=== PATIENT | female | born 1955 | race Caucasian/White ===

== ENCOUNTER → 2017-01-29 | Outpatient (CLI) | payer OTHER | LOC: FIMAGING 07:28 | PROVIDERS: ATTEND Physician Assistant | DX: R93.2 Abnormal findings on diagnostic imaging of liver and biliary tract (principal); R10.11 Right upper quadrant pain ==

== ENCOUNTER → 2017-05-29 | Outpatient (CLI) | payer OTHER | LOC: CIMAGING 08:03 | PROVIDERS: ATTEND Physician Assistant | DX: R19.00 Intra-abdominal and pelvic swelling, mass and lump, unspecified site (principal) | CPT/HCPCS: 76705-PO ==

== ENCOUNTER 2017-10-15 09:38 | Inpatient (IN) | payer OTHER ==
--- NOTE | 2017-10-15 10:08 | CPEKG ---
Heart Rate: 90 RR Interval: 667 P-R Interval: 160 QRSD Interval: 88 QT Interval: 372 QTC Interval: 455 P Blackwell: 62 QRS Blackwell: -45 T Wave Black[place]: 77 EKG Severity - ABNORMAL ECG - EKG Impression: SINUS RHYTHM EKG Impression: VENTRICULAR PREMATURE COMPLEX EKG Impression: LEFT ANTERIOR FASCICULAR BLOCK Electronically Signed By: Kwasi Mark 17-Oct-2017 05:31:44
[2017-10-15] MEDS ORDERED: fentaNYL 100 MCG/2 ML INJ IVP ONE (10:28)
[2017-10-15] MEDS ORDERED: ONDANSETRON 4 MG/2 ML VIAL IVP ONE (10:28)
[2017-10-15] MEDS ORDERED: NS 1,000 ML IV ONE (10:28)
[2017-10-15 10:34] LABS: % IMMATURE GRANULYOCYTES 0.7 % (0.0-1.1); ABSOLUTE IMMATURE GRANULOCYTES 0.06 10^3/uL (0.00-0.10); ADD DIFF? NO; ADD MORPH? NO; ADD SCAN? NO; ATYPICAL LYMPHOCYTE FLAG 0 (0-99); FRAGMENT RBC FLAG 0 (0-99); HEMATOCRIT 47.4 % (38.0-47.0); HEMOGLOBIN 17.1 g/dL (12.6-16.3); LEFT SHIFT FLG 0 (0-99); LIPEMIA HEMOLYSIS FLAG 90 (0-99); MEAN CELL HEMOGLOBIN 35.8 pg (27.9-34.1); MEAN CELL HEMOGLOBIN CONCENTR. 36.1 g/dL (32.4-36.7); MEAN CELL VOLUME 99.4 fL (81.5-99.8); MEAN PLATELET VOLUME 9.1 fL (8.7-11.7); PLATELET CLUMPS FLAG 0 (0-99); PLATELET COUNT 270 10^3/uL (150-400); RED BLOOD CELL COUNT 4.77 10^6/uL (4.18-5.33); RED CELL DISTRIBUTION WIDTH 15.8 % (11.5-15.2)
[2017-10-15 10:48] LABS: ALANINE AMINOTRANSFERASE 67 IU/L (9-52); ALKALINE PHOSPHATASE 58 IU/L (38-126); ANION GAP 12 mEq/L (8-16); ASPARTATE AMINOTRANSFERASE 49 IU/L (14-46); BILIRUBIN,TOTAL 0.8 mg/dL (0.1-1.4); BILIRUBIN-CONJUGATED 0.2 mg/dL (0.0-0.5); BILIRUBIN-UNCONJUGATED 0.6 mg/dL (0.0-1.1); CALCIUM 9.3 mg/dL (8.5-10.4); CARBON DIOXIDE 24 mEq/l (22-31); CHLORIDE 103 mEq/L (97-110); GLOMERULAR FILTRATION RATE 56; GLUCOSE 98 mg/dL (70-100); POTASSIUM 3.8 mEq/L (3.5-5.2); SODIUM 139 mEq/L (134-144); TOTAL PROTEIN 6.3 g/dL (6.3-8.2)
[2017-10-15 10:58] LABS: TROPONIN I < 0.012 ng/mL (0.000-0.034)
[2017-10-15 11:22] LABS: COLOR YELLOW; LEUKOCYTE ESTERASE,URINE NEGATIVE (NEGATIVE); NITRITE,URINE NEGATIVE (NEGATIVE)
[2017-10-15 11:27] LABS: MUCUS TRACE /lpf (NONE-1+)
--- NOTE | 2017-10-15 11:51 | EDPHY ---
HPI/HX/ROS/PE/MDM Narrative: CHIEF COMPLAINT: Nausea, vomiting. HISTORY OF PRESENT ILLNESS: This patient is a 62 year old female with history of Richie's disease, hypothyroidism, hyperparathyroidism, and diabetes insipidus arriving via EMS complaining of vomiting, diarrhea, and weakness onset yesterday evening. She has episodes of vomiting or diarrhea every 15 minutes from 9:00pm last night until about 4:30 am this morning. She was unable to take her regular medications at 6:00 this morning as usual. EMS crews administered Zofran and solumedrol during transport. The patient denies any known ill contacts but volunteers at [facility]. She endorses abdominal cramping. Currently, she is feeling better, and states the Zofran administered in transport relieved nausea quite a bit. She also complains of chest pain, which she believes may be associated with her Richie's disease, or with reflux. She has noted increased chest discomfort and fatigue with exertion lately. She discussed this with her PCP who recommended stress testing. No fever, chills, shortness of breath, palpitations, urinary complaints, headache, lightheadedness, or syncope. Also c/o knee swelling due to her gout. REVIEW OF SYSTEMS: Aside from elements discussed in the HPI, a comprehensive 10-point review of systems was reviewed and is negative. PAST MEDICAL HISTORY: 1. Diabetes insipidus 2. Richie's disease 3. Hernia repair x2 4. Gout 5. Detached retina 6. Hypothyroid 7. Hyperparathyroid SOCIAL HISTORY: Single. Lives in [place]. PCP Dr. Smith. VITAL SIGNS: Reviewed by me GENERAL: Well-developed, well-nourished, resting comfortably in no respiratory distress. HEENT: Atraumatic. Eyes: No icterus, no injection. Anisocoria secondary to retinal detachment surgery. Mouth: dry lips, mucous membranes. No erythema or lesions. Neck: supple with no adenopathy. LUNGS: Clear to auscultation bilaterally, no wheezes, rhonchi or rales. CARDIAC: Regular tachycardia, no rubs, murmurs or gallops. ABDOMEN: Soft, mild diffuse abdominal tenderness, no guarding or rebound nondistended, bowel sounds normal. BACK: No CVA tenderness. EXTREMITIES: Swelling to right knee. No trauma. No edema. Range of motion is normal throughout. NEURO: Alert and oriented, grossly nonfocal. SKIN: Warm and dry, no rash. PSYCHIATRIC: Normal mentation, no agitation. Portions of this note were transcribed by a director biomedical engineering. I personally performed a history, physical exam, medical decision making, and confirmed accuracy of information the transcribed note. ED Course: 62 y/o female with history of multiple endocrine disorders presents with 12 hour history of nausea and vomiting. 12-LEAD EKG: Please see the full report in [facility]. My interpretation: Sinus rhythm, rate 90. PVC. No acute ischemic changes. Lipase elevated 1357. AST, ALT elevated. Troponin negative. Plan to admit. Plan for cardiology consult to further evaluate the patient's chest pain and fatigue with exertion. 11:51 Consulted with hospitalist service. Dr. Rowell accepts admission. Discussed with patient. US of RUQ ordered to eval for gallstone pancreatitis. US reported by radiology as negative for gallstones. See full report. MDM: Diff dx of patients nausea and vomiting considered including but not limited to gastroenteritis, adrenal crisis, DKA, infection, drug or alcohol effect, drug or alcohol withdrawl, intraabdominal process including bowel obstruction, pancreatitis, cholecystitis. - Data Points Imaging Results: Impression: 1. Normal sonographic appearance of the gallbladder, with no cholelithiasis, cholecystitis, or bile duct dilatation. 2. There are a couple of stable subcentimeter echogenic lesions in the right hepatic lobe, likely representing benign hemangiomas, unchanged from February 2015. Findings were discussed with Lori Pandey MD at 12:19, on 10/15/2017. She indicated the patient has an elevated lipase level of 1300, consistent with pancreatitis. The sonographic appearance of the pancreas is normal, and there is no peripancreatic fluid collection. CT imaging would be a more sensitive means of evaluating the pancreatic bed. Dictated By: Angel Pearson MD Imaging: Discussed imaging studies w/ call center professional Radiologist Laboratory Results: Laboratory Results 10/16/17 04:40 10/16/17 04:40 Medications Given: Acetaminophen (Tylenol) 650 mg PO Q4HRS PRN PRN Reason: Pain, Mild/Fever, Can Take PO Stop: 04/13/18 13:47 Last Admin: 10/15/17 18:27 Dose: 650 mg Doxepin HCl (Sinequan) 10 mg PO HS [facility] Stop: 04/14/18 20:59 Last Admin: 10/16/17 22:13 Dose: 10 mg Gabapentin (Neurontin) 100 mg PO QID [facility] Stop: 04/14/18 20:59 Last Admin: 10/17/17 05:28 Dose: 100 mg Hydrocortisone (Solucortef) 25 mg IVP Q8HRS [facility] Stop: 04/13/18 13:59 Last Admin: 10/17/17 05:28 Dose: 25 mg Dextrose/Sodium Chloride (D5w 1/2 Ns) 1,000 mls @ 100 mls/hr IV CONT [facility] Stop: 04/13/18 13:59 Last Admin: 10/16/17 16:26 Dose: 1,000 mls Levofloxacin/Dextrose (Levaquin 500 Mg (Premix)) 100 mls @ 100 mls/hr IV DAILY [facility] PRN Reason: Protocol Stop: 11/14/17 13:59 Last Admin: 10/17/17 09:13 Dose: 100 mls Levothyroxine Sodium (Synthroid) 50 mcg PO DAILY06 [facility] Stop: 04/14/18 17:14 Last Admin: 10/17/17 05:28 Dose: [address] [place] Carbonate ([place] Carbonate) 150 mg PO DAILY [facility] Stop: 04/14/18 17:14 Last Admin: 10/17/17 09:13 Dose: 150 mg Miscellaneous Medication (Paricalcitol [Zemplar]) 1 mcg PO Q2D [facility] Stop: 04/14/18 17:14 Last Admin: 10/16/17 17:26 Dose: Not Given Modafinil (Provigil) 50 mg PO BID@08,12 [facility] Stop: 04/15/18 07:59 Last Admin: 10/17/17 09:18 Dose: 50 mg Ondansetron HCl (Zofran) 4 mg IVP Q4HRS PRN PRN Reason: Nausea/Vomiting, Can't Take PO Stop: 04/13/18 13:47 Last Admin: 10/15/17 18:41 Dose: 4 mg Pantoprazole Sodium (Protonix) 40 mg PO DAILY [facility] Stop: 04/15/18 08:59 Last Admin: 10/17/17 09:13 Dose: 40 mg Valacyclovir HCl (Valtrex) 1,000 mg PO DAILY [facility] Stop: 01/13/18 08:59 Last Admin: 10/17/17 09:13 Dose: 1,000 mg Discontinued Medications Fentanyl (Sublimaze) 50 mcg IVP EDNOW ONE Stop: 10/15/17 10:29 Last Admin: 10/15/17 10:49 Dose: Not Given Sodium Chloride (Ns) 1,000 mls @ 0 mls/hr IV EDNOW ONE; Wide Open PRN Reason: Protocol Stop: 10/15/17 10:29 Last Admin: 10/15/17 10:37 Dose: 1,000 mls Ondansetron HCl (Zofran) 4 mg IVP EDNOW ONE Stop: 10/15/17 10:29 Last Admin: 10/15/17 10:39 Dose: 4 mg Microbiology Results: MICROBIOLOGY 10/15/17 15:07 Stool Gastrointestinal Tract Panel (PCR) - Final Norovirus Gi/Gii General Time Seen by Provider: 10/15/17 10:13 Initial Vital Signs: Initial Vital Signs Temperature (C) 36.9 C 10/15/17 09:53 Heart Rate 92 10/15/17 09:53 Respiratory Rate 25 H 10/15/17 09:53 Blood Pressure 113/77 10/15/17 09:53 O2 Sat (%) 97 10/15/17 09:53 O2 Delivery Mode Room Air Allergies/Adverse Reactions: cephalexin monohydrate [From Keflex] Allergy (Verified 10/15/17 12:41) flush Penicillins Allergy (Verified 10/15/17 12:41) Hives Sulfa (Sulfonamide Antibiotics) Allergy (Verified 10/15/17 12:41) Hives tetracycline [Tetracycline] Allergy (Verified 10/15/17 12:41) flush Home Medications: Medication Instructions Recorded Prednisone 5 mg PO BID 07/13/11 Paricalcitol [Zemplar] 1 mcg PO Q2D 10/05/15 Atenolol [Tenormin 50 mg (*)] 50 mg PO DAILY@12 10/15/17 Carboxymethylcellulose 1% [Refresh 1 drop EACHEYE DAILY PRN 10/15/17 Celluvisc (*)] Cholecalciferol Vit D3 [Vitamin D3 1,000 units PO DAILY 10/15/17 (*)] Doxepin HCl [SINEquan 10 MG (*)] 10 mg PO HS 10/15/17 Fludrocortisone Acetate [Florinef 0.5 each PO DAILY 10/15/17 0.1 MG (RX)] Furosemide [Lasix 20 MG (*)] 20 mg PO DAILY 10/15/17 Gabapentin [Neurontin 100 MG (*)] 100 mg PO QID 10/15/17 Ibuprofen [Motrin (*)] 400 mg PO DAILY PRN 10/15/17 Lansoprazole [Prevacid] 15 mg PO DAILY 10/15/17 Levothyroxine [Synthroid 50 mcg 50 mcg PO DAILY06 10/15/17 (*)] [place] Carbonate [Pe[place] 150 mg PO DAILY 10/15/17 Carbonate Tab 300 mg (*)] Modafinil [Provigil 100 mg (*)] 50 mg PO BID@08,12 10/15/17 Rizatriptan Benzoate [Maxalt 10mg] 10 mg PO DAILY PRN 10/15/17 Vitamin B Complex [B Complex] 1 each PO DAILY 10/15/17 levOFLOXACIN [levAQUIN (*)] 500 mg PO DAILY 10/15/17 valACYclovir [Valtrex (*)] 1,000 mg PO DAILY 10/15/17 Departure - Departure Disposition: [facility] Acute Clinical Impression: Elevated lipase Nausea & vomiting Qualifiers: Vomiting type: unspecified Vomiting Intractability: non-intractable Qualified Code(s): R11.2 - Nausea with vomiting, unspecified Diarrhea Qualifiers: Diarrhea type: unspecified type Qualified Code(s): R19.7 - Diarrhea, unspecified Condition: Fair Report Scribed for: Lori Pandey Report Scribed by: Tamara Barry Date of Report: 10/15/17 Time of Report: 12:09
[2017-10-15] MEDS ORDERED: ACETAMINOPHEN 325 MG TAB PO PRN (13:48)
[2017-10-15] MEDS ORDERED: PROMETHAZINE HCL 25 MG/ML INJ IVP PRN (13:48)
[2017-10-15] MEDS ORDERED: ONDANSETRON DISINTEGRATING 4 MG TAB PO PRN (13:48)
[2017-10-15] MEDS ORDERED: CARBOXYMETHYLCELLULOSE 1% 0.4 ML DROPERETTE EACHEYE PRN (13:50)
--- NOTE | 2017-10-15 14:13 | ASMTCMCOM ---
CM Note CM Note Notes: PAtient admitted for N/V/D since yesterday and elevated lipase. Patient has been unable to take her daily medications. Patient has a history of [place]'s, hypothyroidism, hyperparathyroidism, diabetes insipidus. 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. Patient lives alone in [place] and her PCP is Dr. Smith. Exact DC needs unknown at this time. CM to follow. Date Signed: 10/15/2017 02:13 PM Electronically Signed By:Elaine Mims RN
[2017-10-15] MEDS: HYDROCORTISONE 100 MG/2 ML VIAL IVP SCH ×2 (14:30→22:15)
--- NOTE | 2017-10-15 14:31 | GHP ---
[f rep st] HISTORY AND PHYSICAL DATE OF ADMISSION: 10/15/2017 CHIEF COMPLAINT: Nausea, vomiting, diarrhea. HISTORY OF PRESENT ILLNESS: A 62-year-old female with [place] disease presents with acute onset of n ausea, vomiting, and diarrhea. This began last night. This has all been nonbloody. Was quite profu se. She had diarrhea as well as vomiting about every half an hour. She tried to take her medicines. However, those came back up as well. 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 She has been taking Levaquin for a sinus infection. She has 7 days into a 10 day course. She was feeling very weak when paramedics arrived. They gave her S barbara-Medrol in the ambulance on the way to the emergency department. She does not drink alcohol. She has had elevated lipase in the past, though she is unclear if she has actually had pancreatitis in t he past. She is feeling better after IV hydration when I am seeing her. She also complains of some burning chest pain, which has been present for some time. She feels as though she gets this when she gets fatigued, and she has associates this with her [place] disease. PAST MEDICAL/SURGICAL HISTORY: 1. [place] disease. 2. Diabetes insipidus. 3. Hypothyroid. 4. Hyperparathyroid. 5. Hernia repair. 6. Gout. 7. Detached retina. MEDICATIONS: Please see medication reconciliation. ALLERGIES: Keflex, penicillin, sulfa, tetracycline. SOCIAL HISTORY: She lives in [place]. She is not . FAMILY HISTORY: Her father had [place] disease. REVIEW OF SYSTEMS: A 10-point review of systems is conducted and is negative except per HPI. PHYSICAL EXAMINATION: VITAL SIGNS: Blood pressure 106/82, heart rate 85, respiration rate 14, satur ating 94% on room air. Temperature is 36.9. GENERAL: The patient is a pleasant female who looks so mewhat pale and listless, lying in bed. HEENT: Shows her to be normocephalic, atraumatic. CARDIOVA SCULAR: Shows regular rate and rhythm. She has a 1/6 systolic murmur. PULMONARY: Shows lungs sherice r to auscultation bilaterally. ABDOMEN: Soft, nontender, nondistended. SKIN: Shows no rash. : Shows no Pete. NEUROLOGIC: Shows her to be alert and oriented x3. She is moving all extremities. PSYCHIATRIC: Shows normal mood and affect. LABORATORY: Basic metabolic panel is normal. AST is 49, ALT 67. Troponins negative. Lipase 1357. Hemoglobin 17, platelets are normal, white count is 8. Urinalysis shows 1+ ketones. DATA: 1. I reviewed her chart. 2. I personally viewed and interpreted her EKG. This shows sinus rhythm. She has 1 PVC. She has m ild ST depression in V3, V4, and V5. 3. Abdominal ultrasound shows no cholecystitis. She has likely hemangiomas, which are unchanged fro m February of 2015, in her liver. IMPRESSION AND PLAN: A 62-year-old female with gastroenteritis. 1. Gastroenteritis: Will send gastrointestinal pathogen panel. She is at risk for norovirus given recent outbreak as well as Clostridium difficile given her antibiotic use. Will empirically place he r on contact precautions while awaiting GI pathogen panel. 2. [place] disease: Will give her intravenous steroids as she is not taking p.o. right now. 3. Dehydration: Will give her IV hydration overnight. 4. Recent sinus infection: Will change her Levaquin to IV. 5. Will give her antiemetics IV as needed. 6. Hypothyroid: Will restart her Synthroid as soon as she is taking p.o. 7. Hyperparathyroidism: Will continue her paricalcitol when she is taking p.o. 8. Chest pain, mild ST depressions: Will discuss further with her tomorrow. Initial troponin negat johnson. Will check one more troponin. 9. Mild transaminitis: Suspect that this is dehydration. Liver appears normal. No evidence for ch olecystitis on ultrasound. Will recheck tomorrow. 10. Elevated lipase: Could consider pancreatitis though seems less likely given the clinical pictur e. 11. Venous thromboembolism risk: She is moderate. Will put her on SCDs. 12. Cor status: Full. /[id number]/MODL
[2017-10-15] MEDS: D5W 1/2 NS 1,000 ML IV SCH (14:34)
[2017-10-15] MEDS: levOFLOXACIN 500 MG/DEXTROSE 100 ML IV SCH (14:51)
[2017-10-15] MEDS: ONDANSETRON 4 MG/2 ML VIAL IVP PRN (18:41)
[2017-10-16 05:15] LABS: % IMMATURE GRANULYOCYTES 1.1 % (0.0-1.1); ABSOLUTE IMMATURE GRANULOCYTES 0.06 10^3/uL (0.00-0.10); ADD DIFF? NO; ADD MORPH? NO; ADD SCAN? NO; ATYPICAL LYMPHOCYTE FLAG 0 (0-99); FRAGMENT RBC FLAG 20 (0-99); HEMATOCRIT 34.8 % (38.0-47.0); HEMOGLOBIN 12.4 g/dL (12.6-16.3); LEFT SHIFT FLG 0 (0-99); LIPEMIA HEMOLYSIS FLAG 90 (0-99); MEAN CELL HEMOGLOBIN 36.2 pg (27.9-34.1); MEAN CELL HEMOGLOBIN CONCENTR. 35.6 g/dL (32.4-36.7); MEAN CELL VOLUME 101.5 fL (81.5-99.8); PLATELET CLUMPS FLAG 0 (0-99); PLATELET COUNT 234 10^3/uL (150-400); RED BLOOD CELL COUNT 3.43 10^6/uL (4.18-5.33); RED CELL DISTRIBUTION WIDTH 15.9 % (11.5-15.2)
[2017-10-16] MEDS: HYDROCORTISONE 100 MG/2 ML VIAL IVP SCH ×3 (05:19→22:13)
[2017-10-16 05:27] LABS: ALANINE AMINOTRANSFERASE 52 IU/L (9-52); ALBUMIN 2.5 g/dL (3.5-5.0); ALKALINE PHOSPHATASE 35 IU/L (38-126); ANION GAP 6 mEq/L (8-16); ASPARTATE AMINOTRANSFERASE 33 IU/L (14-46); BILIRUBIN,TOTAL 0.6 mg/dL (0.1-1.4); CALCIUM 7.7 mg/dL (8.5-10.4); CARBON DIOXIDE 22 mEq/l (22-31); CHLORIDE 112 mEq/L (97-110); CREATININE 0.7 mg/dL (0.6-1.0); GLOMERULAR FILTRATION RATE > 60; GLUCOSE 129 mg/dL (70-100); POTASSIUM 3.6 mEq/L (3.5-5.2); SODIUM 140 mEq/L (134-144); TOTAL PROTEIN 4.5 g/dL (6.3-8.2)
--- NOTE | 2017-10-16 09:07 | CPEKG ---
Heart Rate: 67 RR Interval: 896 P-R Interval: 168 QRSD Interval: 94 QT Interval: 400 QTC Interval: 423 P [place]: 54 QRS [place]: -20 T Wave [place]: 63 EKG Severity - BORDERLINE ECG - EKG Impression: SINUS RHYTHM EKG Impression: BORDERLINE LEFT AXIS DEVIATION EKG Impression: CONSIDER ANTERIOR INFARCT Electronically Signed By: Kamila Bean 16-Oct-2017 11:11:57
[2017-10-16] MEDS: levOFLOXACIN 500 MG/DEXTROSE 100 ML IV SCH (09:30)
--- NOTE | 2017-10-16 12:47 | HOSPPROG ---
Hospitalist Progress Note Assessment/Plan: # norovirus, gastroenteritis slowly resolving, trying to eat today - cont IVF # triny's disease - cont IV steroids # CP, concerning for angina, ST depressions on ECG - treadmill ECG stress tomorrow; she would not be able to f/u with cardiology as outpatient until next year # sinus infection - levaquin, has about 2 more days # htn - hold meds # hypothyroid - synthroid Subjective: trying to eat, has not tolerated solids yet; describes pressure CP worse with exertion and better with rest, slowly worsening Objective: Vital Signs Temp Pulse Resp BP Pulse Ox 37.1 C 81 15 109/71 94 10/16/17 08:00 10/16/17 08:00 10/16/17 08:00 10/16/17 08:00 10/16/17 08:00 Microbiology 10/15/17 15:07 Gastrointestinal Tract Panel (PCR) - Final Stool Norovirus Gi/Gii Laboratory Results 10/16/17 04:40 10/16/17 04:40 10/15/17 10/16/17 10/17/17 05:59 05:59 05:59 Intake Total 2594 Balance 2594 ecg personally reviewed - Physical Exam Constitutional: no apparent distress, appears nourished Cardiovascular: regular rate and rhythym, no murmur, rub, or gallop Respiratory: no respiratory distress, no rales or rhonchi, clear to auscultation Gastrointestinal: normoactive bowel sounds, soft, non-tender abdomen, no palpable masses ICD10 Worksheet Patient Problems: Problems Problem Status Onset Nausea & vomiting Acute Diarrhea Acute Elevated lipase Acute
[2017-10-16] MEDS: D5W 1/2 NS 1,000 ML IV SCH (16:26)
--- NOTE | 2017-10-16 17:00 | PDMN ---
Medical Necessity Medical necessity: Change to IP, as of 10/16/17; per MD; los >2 mn for ongoing management/tx of Norovirus & CP, concerning for angina; admit for further management, IVF, IV steroids/abx & ECG; hx recent sinus infection, diabetes insipidus & [place] disease; per progress note & order 10/16/17
[2017-10-16] MEDS ORDERED: RIZATRIPTAN BENZOATE PO PRN (17:07)
[2017-10-16] MEDS ORDERED: IBUPROFEN 200 MG TAB PO PRN (17:07)
[2017-10-16] MEDS: LITHIUM CARBONATE 300 MG TAB PO SCH (17:25)
[2017-10-16] MEDS: PARICALCITOL 1 MCG PO SCH (17:26)
[2017-10-16] MEDS: LEVOTHYROXINE 50 MCG TAB PO SCH (17:26)
[2017-10-16] MEDS: DOXEPIN HCL 10 MG CAP PO SCH (22:13)
[2017-10-16] MEDS: GABAPENTIN 100 MG CAP PO SCH (22:13)
[2017-10-17] MEDS: LEVOTHYROXINE 50 MCG TAB PO SCH (05:28)
[2017-10-17] MEDS: HYDROCORTISONE 100 MG/2 ML VIAL IVP SCH ×3 (05:28→21:50)
[2017-10-17] MEDS: GABAPENTIN 100 MG CAP PO SCH ×4 (05:28→21:50)
[2017-10-17] MEDS: levOFLOXACIN 500 MG/DEXTROSE 100 ML IV SCH (09:13)
[2017-10-17] MEDS: PANTOPRAZOLE SODIUM 40 MG TAB PO SCH (09:13)
[2017-10-17] MEDS: LITHIUM CARBONATE 300 MG TAB PO SCH (09:13)
[2017-10-17] MEDS: valACYclovir 500 MG TAB PO SCH (09:13)
[2017-10-17] MEDS: MODAFINIL 100 MG TAB PO SCH ×2 (09:18→13:25)
--- NOTE | 2017-10-17 11:05 | HOSPPROG ---
Hospitalist Progress Note Assessment/Plan: 62 yo F w triny's here w norovairus norovirus, gastroenteritis slowly resolving, tolerating po triny's disease - cont IV steroids CP, concerning for angina, ST depressions on ECG - treadmill ECG stress tomorrow; she would not be able to f/u with cardiology as outpatient until next year sinus infection - levaquin, has about 2 more days htn - hold meds hypothyroid - synthroid dispo: home if stress OK Subjective: no further CP. tolerating po w some nausea Objective: Vital Signs Temp Pulse Resp BP Pulse Ox 36.8 C 66 14 131/66 H 95 10/17/17 08:00 10/17/17 08:00 10/17/17 08:00 10/17/17 08:00 10/17/17 08:00 10/16/17 10/17/17 10/18/17 05:59 05:59 05:59 Intake Total 1738 Balance 1738 - Physical Exam Constitutional: no apparent distress, appears nourished Eyes: PERRL, anicteric sclera Ears, Nose, Mouth, Throat: moist mucous membranes, hearing normal Cardiovascular: regular rate and rhythym, no murmur, rub, or gallop Respiratory: no respiratory distress, no rales or rhonchi Gastrointestinal: normoactive bowel sounds, soft, non-tender abdomen Genitourinary: no bladder fullness, No woodard in urethra Skin: warm, normal color Musculoskeletal: full muscle strength Neurologic: AAOx3 ICD10 Worksheet Patient Problems: Problems Problem Status Onset Diarrhea Acute Elevated lipase Acute Nausea & vomiting Acute
--- NOTE | 2017-10-17 16:17 | ASMTCMCOM ---
CM Note CM Note Notes: Pt still recovering from Norovirus but should still dc home independent when medically stable. CM available for any changes. Date Signed: 10/17/2017 04:17 PM Electronically Signed By:Tennille Luu RN
[2017-10-17] MEDS: DOXEPIN HCL 10 MG CAP PO SCH (21:50)
[2017-10-18] MEDS: HYDROCORTISONE 100 MG/2 ML VIAL IVP SCH (04:47)
[2017-10-18] MEDS: GABAPENTIN 100 MG CAP PO SCH ×3 (05:52→17:23)
[2017-10-18] MEDS: LEVOTHYROXINE 50 MCG TAB PO SCH (05:52)
[2017-10-18 08:45] VITALS: BP 124/68; PULSE 64; RESP 14; TEMP 98.1; O2SAT 95
[2017-10-18] MEDS: LITHIUM CARBONATE 300 MG TAB PO SCH (09:04)
[2017-10-18] MEDS: MODAFINIL 100 MG TAB PO SCH ×2 (09:04→12:28)
[2017-10-18] MEDS: PANTOPRAZOLE SODIUM 40 MG TAB PO SCH (09:04)
[2017-10-18] MEDS ORDERED: REGADENOSON 0.4 MG/5 ML SYR IVP ONE (09:10)
[2017-10-18] MEDS: ONDANSETRON 4 MG/2 ML VIAL IVP PRN (09:55)
[2017-10-18] MEDS: valACYclovir 500 MG TAB PO SCH (09:58)
[2017-10-18] MEDS: PARICALCITOL 1 MCG PO SCH (09:58)
[2017-10-18] MEDS ORDERED: AMINOPHYLLINE 250 MG/10 ML VIAL ONE (13:42)
--- NOTE | 2017-10-18 16:36 | HOSPPROG ---
Hospitalist Progress Note Assessment/Plan: 62 yo F w triny's here w norovairus norovirus, gastroenteritis slowly resolving, tolerating po triny's disease - cont IV steroids CP, concerning for angina, ST depressions on ECG - treadmill ECG stress tomorrow; she would not be able to f/u with cardiology as outpatient until next year sinus infection - levaquin, has about 2 more days htn - hold meds hypothyroid - synthroid dispo:home today > 30 m,inutes Subjective: neg stress Objective: Vital Signs Temp Pulse Resp BP Pulse Ox 36.7 C 64 14 124/68 H 95 10/18/17 08:00 10/18/17 08:00 10/18/17 08:00 10/18/17 08:00 10/18/17 08:00 10/17/17 10/18/17 10/19/17 05:59 05:59 05:59 Intake Total 1738 500 Balance 1738 500 - Physical Exam Constitutional: no apparent distress Eyes: anicteric sclera Ears, Nose, Mouth, Throat: moist mucous membranes, hearing normal Cardiovascular: regular rate and rhythym, no murmur, rub, or gallop Respiratory: no respiratory distress, no rales or rhonchi Gastrointestinal: normoactive bowel sounds, soft, non-tender abdomen Genitourinary: no bladder fullness, No woodard in urethra Skin: warm, normal color Musculoskeletal: full muscle strength, no joint effusions Neurologic: AAOx3 ICD10 Worksheet Patient Problems: Problems Problem Status Onset Diarrhea Acute Elevated lipase Acute Nausea & vomiting Acute
--- NOTE | 2017-10-18 18:13 | ASDISCHSUM ---
Discharge Information Plan Status:Home with No Needs Medically Cleared to Leave: Discharge Date:10/18/2017 05:47 PM CM D/C Disposition:Home, Routine, Self-Care ADT D/C Disposition:Home, Routine, Self-Care Projected Discharge Date:10/18/2017 05:47 PM Transportation at D/C: Discharge Delay Reason: Follow-Up Date:10/18/2017 05:47 PM Discharge Slot: Final Diagnosis: Placement Information Patient Contact Information Contact Name:MARIA VICTORIA Relationship: Address: Work Phone: City:[place] Alternate Phone: State/[employer] Code:[place] Email: Financial Information Financial Class: Primary Plan Desc:MEDICARE INPATIENT Primary Plan Number:[id number] Secondary Plan Desc:[employer] Secondary Plan Number:[id number] Assessment Information LACE LACE Acuity / Level of Care Answers: Was the patient admitted to hospital via the emergency department? Yes: Comorbidities - select Answers: Diabetes without all that apply complications Emergency dept visits in Answers: 1 last 6 months Score: 5 Date Signed: 10/15/2017 12:29 PM Electronically Signed By:Elaine Mims RN [facility] CM Progress Note CM Note CM Note Notes: PAtient admitted for N/V/D since yesterday and elevated lipase. Patient has been unable to take her daily medications. Patient has a history of [place]'s, hypothyroidism, hyperparathyroidism, diabetes insipidus. Patient is a volunteer at [employer]. Patient lives alone in [place] and her PCP is Dr. Smith. Exact DC needs unknown at this time. CM to follow. Date Signed: 10/15/2017 02:13 PM Electronically Signed By:Elaine Mims RN [facility] CM Progress Note CM Note CM Note Notes: Pt still recovering from Norovirus but should still dc home independent when medically stable. CM available for any changes. Date Signed: 10/17/2017 04:17 PM Electronically Signed By:Tennille Luu RN Intervention Information Intervention Type:*MONTANA-Signed Date of Service:10/16/2017 09:06 AM Patient Type:Observation Staff Member:Clarisa Raman Hours: Discipline: Severity: Comment:
--- NOTE | 2017-10-18 20:22 | CPR ---
[f rep st] NONINVASIVE CARDIAC PROCEDURE REPORT LEXISCAN/INJECTION OF LEXISCAN MYOCARDIAL PERFUSION IMAGING STUDY INDICATION FOR PROCEDURE: Episodes of chest pressure, abnormal electrocardiogram. Unable to walk on treadmill. PRE: After obtaining informed consent, ensuring patient's n.p.o. status of caffeine for greater than 12 hours, patient was placed on electrocardiogram, EKG showing sinus rhythm, left axis deviation, no nspecific T-wave abnormalities inferior lateral leads. Patient denies chest pain, shortness of breat h, and symptoms suggesting of ischemia. Initial blood pressure 126/78, saturating 95% on room air. INJECTION: Patient was given Lexiscan slow IV push followed by nuclear isotope. Within 30 seconds o f injection of Lexiscan, patient reported some nausea, mild midsternal chest pressure, and abdomen cr amping. Her electrocardiogram showed that, besides the elevated heart rate, she had no significant S T or T-wave changes with rate change and blood pressure remained stable. The patient was given caffe ine,, which she reported mildly helped symptoms, but did not truly resolve. By 4 minutes with the in jection, patient was given aminophylline 100 mg IV push by me. Within 2 minutes of injection, salud condon reported all symptoms had subsided. Final blood pressure of 118/70, heart rate 90. No changes in electrocardiogram. IMPRESSION: Elderly female, admitted to hospital with chest pressure and abnormal electrocardiogram, underwent Lexiscan myocardial perfusion imaging study; no significant EKG changes with Lexiscan, but reporting abdominal cramping, nausea, and mild midsternal chest pressure. Symptoms partially resolv ed with caffeinated beverage but did require 100 mg of aminophylline IV push; within 2 minutes, sympt oms totally resolved. No significant EKG changes post injection, except for elevated rate. Within 5 minutes, rate back to within normal limits and blood pressure remained stable. Currently patient's vital signs are stable, and she is asymptomatic of any symptoms. She is finishing stress MPI imaging in Nuclear Medicine at this time. /[id number]/MODL
[2017-10-18] MEDS ORDERED: predniSONE 5 MG TAB PO SCH (21:00)
--- NOTE | 2017-10-19 12:11 | GDS ---
[f rep st] DISCHARGE SUMMARY DISCHARGE DIAGNOSES: 1. Viral gastroenteritis positive for norovirus. She is a volunteer at [employer]. 2. Adrenal insufficiency. 3. Chest pain with EKG changes. HOSPITAL COURSE: Please see admission history and physical by Dr. Guerrero Landaverde. Patient present ed on the late morning of the with nausea, vomiting, and diarrhea. 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 There is some of that going around. She also had been on levofloxacin for a sinus infectio n. She was C diff negative. She noted some chest pressure. She had some ST depressions inferiorly. She had a Lexiscan today that was unremarkable. She is tolerating orals, eating. Discharged home today on her home medications. She did receive stress dose steroids. /[id number]/MODL
== END 2017-10-18 17:47 | disposition home or self-care (01) | DRG 392 ==
LOC: EDUNIT# → F3E 13:20 → OBSVTOIN 10-16 12:44
PROVIDERS: ADMIT Hospitalist; ATTEND Hospitalist
DX: A08.39 Other viral enteritis (principal); E27.1 Primary adrenocortical insufficiency; E03.9 Hypothyroidism, unspecified; E21.3 Hyperparathyroidism, unspecified; E86.0 Dehydration
CPT/HCPCS: 96374; A9500; G0378; J0280; J1956; J2405; J2785; J3010

== ENCOUNTER 2017-11-07 11:59 | Emergency (ER) | payer OTHER ==
[2017-11-07 13:19] LABS: PLATELET COUNT 267 10^3/uL (150-400)
[2017-11-07 13:55] VITALS: RESP 16; TEMP 97.9
--- NOTE | 2017-11-07 14:11 | EDPHY ---
H & P Time Seen by Provider: 11/07/17 12:49 HPI/ROS: CHIEF COMPLAINT: Generalized weakness HISTORY OF PRESENT ILLNESS: 62-year-old female presents to the emergency department by private vehicle complaining of generalized weakness. The patient was diagnosed with norovirus on 10/16/2017. She was volunteering at [facility] where they had an outbreak of norovirus. She was admitted to the hospital and discharged on 10/18/2017. He also has a history of adrenal insufficiency. She has been taking her hydrocortisone twice daily as instructed. She did give herself a stress dose of 20 mg this morning. Patient feels generalized weakness as well as achy all over including pain in her joints. She states that she has a "frozen left shoulder "and is also having stiffness in her right knee. She saw her primary care provider today who advised that she come to the emergency department for evaluation and for some IV fluids. REVIEW OF SYSTEMS: Constitutional: Denies weakness as above. No fever, no chills. Eyes: No double or blurry vision. ENT: No sore throat. Respiratory: No cough, no shortness of breath. Cardiac: No chest pain. Gastrointestinal: No abdominal pain, vomiting or diarrhea. Genitourinary: No dysuria. Musculoskeletal: No neck or back pain. Skin: No rashes. Neurological: No headache. 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 36.8, 93% on room air. Eyes: Pupils equal and round. Extraocular motions are all intact. ENT: Mouth: Mucous membranes moist. Respiratory: No wheezing, rhonchi, or rales, lungs are clear to auscultation. Cardiovascular: Regular rate and rhythm. Gastrointestinal: Abdomen is soft and nontender, no masses, no rebound or guarding, bowel sounds normal. Neurological: Alert and oriented x 3, cranial nerves II through XII grossly intact Skin: Warm and dry, no rashes. Musculoskeletal: Nontender to palpate along the cervical, thoracic or lumbar spine. Neck is supple. Extremities: Full range of motion and no peripheral edema. Psychiatric: Patient is oriented X 3, there is no agitation. Constitutional: Initial Vital Signs Temperature (C) 36.8 C 01/04/18 12:08 Heart Rate 73 11/07/17 12:08 Respiratory Rate 17 11/07/17 12:08 Blood Pressure 118/68 11/07/17 12:08 O2 Sat (%) 93 11/07/17 12:08 O2 Delivery Mode Room Air Allergies/Adverse Reactions: cephalexin monohydrate [From Keflex] Allergy (Verified 11/07/17 12:07) flush Penicillins Allergy (Verified 11/07/17 12:07) Hives Sulfa (Sulfonamide Antibiotics) Allergy (Verified 11/07/17 12:07) Hives tetracycline [Tetracycline] Allergy (Verified 11/07/17 12:07) flush Home Medications: Medication Instructions Recorded Prednisone 5 mg PO BID 07/13/11 Paricalcitol [Zemplar] 1 mcg PO Q2D 10/05/15 Atenolol [Tenormin 50 mg (*)] 50 mg PO DAILY@12 10/15/17 Carboxymethylcellulose 1% [Refresh 1 drop EACHEYE DAILY PRN 10/15/17 Celluvisc (*)] Cholecalciferol Vit D3 [Vitamin D3 1,000 units PO DAILY 10/15/17 (*)] Doxepin HCl [SINEquan 10 MG (*)] 10 mg PO HS 10/15/17 Fludrocortisone Acetate [Florinef] 0.5 each PO DAILY 10/15/17 Furosemide [Lasix 20 MG (*)] 20 mg PO DAILY 10/15/17 Gabapentin [Neurontin 100 MG (*)] 100 mg PO QID 10/15/17 Ibuprofen [Motrin (*)] 400 mg PO DAILY PRN 10/15/17 Lansoprazole [Prevacid] 15 mg PO DAILY 10/15/17 Levothyroxine [Synthroid 50 mcg 50 mcg PO DAILY06 10/15/17 (*)] [place] Carbonate [[place] 150 mg PO DAILY 10/15/17 Carbonate Tab 300 mg (*)] Modafinil [Provigil 100 mg (*)] 50 mg PO BID@08,12 10/15/17 Rizatriptan Benzoate [Maxalt 10mg] 10 mg PO DAILY PRN 10/15/17 Vitamin B Complex [B Complex] 1 each PO DAILY 10/15/17 levOFLOXACIN [levAQUIN (*)] 500 mg PO DAILY 10/15/17 valACYclovir [Valtrex (*)] 1,000 mg PO DAILY 10/15/17 Medical Decision Making - Diagnostics Imaging Results: Imaging Impressions Chest X-Ray 11/07/17 16:20 Impression: Clear lungs. No acute process or explanation for weakness. Imaging: I viewed and interpreted images myself ED Course/Re-evaluation: 62-year-old female presents to the emergency department with generalized weakness. The patient was diagnosed with norovirus few weeks ago was admitted to the hospital and she states since that time she has just had ongoing weakness. She does have a history of adrenal insufficiency. She did give herself a stress dose this morning. Laboratory studies are unremarkable. Patient has no evidence of pneumonia. Urinalysis reveals no signs of infection. The patient will be discharged home. I did speak with Dr. Galeano who recommended giving the patient outpatient follow-up for orthopedic surgeon. They will put a note in her chart to have her have close follow-up with her primary care provider. Patient was given strict instructions to return to the emergency department if she developed chest pain, difficulty breathing, fever, or if she felt worse in any way. The patient had a sed rate done it primary care office today which was normal at 9. We did discuss possible polymyalgia rheumatica. However with normal sed rate this makes this less likely. She has been having ongoing shoulder pain and stiffness in her left shoulder as well as pain and stiffness in her right knee over last few weeks. Differential Diagnosis: Including but not limited to dehydration, electrolyte abnormality, influenza, bronchitis, pneumonia, viral syndrome - Data Points Laboratory Results: Laboratory Results 11/07/17 12:29 11/07/17 13:40 11/07/17 11/07/17 11/07/17 14:05 13:40 13:40 WBC RBC Hgb Hct MCV MCH MCHC RDW Plt Count MPV Neut % (Auto) Lymph % (Auto) [place] % (Auto) Eos % (Auto) Baso % (Auto) Nucleat RBC Rel Count Absolute Neuts (auto) Absolute Lymphs (auto) Absolute Monos (auto) Absolute Eos (auto) Absolute Basos (auto) Absolute Nucleated RBC Immature Gran % Immature Gran # Sodium 140 mEq/L mEq/L (134-144) Potassium 3.7 mEq/L mEq/L (3.5-5.2) Chloride 113 mEq/L H mEq/L (97-110) Carbon Dioxide 20 mEq/l L mEq/l (22-31) Anion Gap 7 mEq/L L mEq/L (8-16) BUN 18 mg/dL mg/dL (7-23) Creatinine 0.8 mg/dL mg/dL (0.6-1.0) Estimated GFR > 60 Glucose 84 mg/dL mg/dL (70-100) Calcium 8.3 mg/dL L D mg/dL (8.5-10.4) Urine Color Urine Appearance Urine pH Ur Specific [place] Urine Protein Urine Ketones Urine Blood Urine Nitrate Urine Bilirubin Urine Urobilinogen Ur Leukocyte Esterase Urine RBC Urine WBC Ur Epithelial Cells Urine Mucus Urine Glucose Nasal Influenza A PCR NEGATIVE FOR FLU A (NEGATIVE) Nasal Influenza B PCR NEGATIVE FOR FLU B (NEGATIVE) [place] 0.2 mEq/L L mEq/L (0.6-1.2) 11/07/17 11/07/17 11/07/17 12:29 12:29 12:29 WBC 9.26 10^3/uL 10^3/uL (3.80-9.50) RBC 4.21 10^6/uL 10^6/uL (4.18-5.33) Hgb 15.2 g/dL g/dL (12.6-16.3) Hct 42.9 % % (38.0-47.0) MCV 101.9 fL H fL (81.5-99.8) MCH 36.1 pg H pg (27.9-34.1) MCHC 35.4 g/dL g/dL (32.4-36.7) RDW 14.6 % % (11.5-15.2) Plt Count 267 10^3/uL 10^3/uL (150-400) MPV 8.8 fL fL (8.7-11.7) Neut % (Auto) 79.1 % H % (39.3-74.2) Lymph % (Auto) 13.1 % L % (15.0-45.0) [place] % (Auto) 5.6 % % (4.5-13.0) Eos % (Auto) 0.1 % L % (0.6-7.6) Baso % (Auto) 0.4 % % (0.3-1.7) Nucleat RBC Rel Count 0.0 % % (0.0-0.2) Absolute Neuts (auto) 7.32 10^3/uL H 10^3/uL (1.70-6.50) Absolute Lymphs (auto) 1.21 10^3/uL 10^3/uL (1.00-3.00) Absolute Monos (auto) 0.52 10^3/uL 10^3/uL (0.30-0.80) Absolute Eos (auto) 0.01 10^3/uL L 10^3/uL (0.03-0.40) Absolute Basos (auto) 0.04 10^3/uL 10^3/uL (0.02-0.10) Absolute Nucleated RBC 0.00 10^3/uL 10^3/uL (0-0.01) Immature Gran % 1.7 % H % (0.0-1.1) Immature Gran # 0.16 10^3/uL H 10^3/uL (0.00-0.10) Sodium TNP Potassium TNP Chloride TNP Carbon Dioxide TNP Anion Gap TNP BUN TNP Creatinine TNP Estimated GFR TNP Glucose TNP Calcium TNP Urine Color PALE YELLOW Urine Appearance CLEAR Urine pH 6.0 (5.0-7.5) Ur Specific [place] 1.005 (1.002-1.030) Urine Protein NEGATIVE (NEGATIVE) Urine Ketones NEGATIVE (NEGATIVE) Urine Blood NEGATIVE (NEGATIVE) Urine Nitrate NEGATIVE (NEGATIVE) Urine Bilirubin NEGATIVE (NEGATIVE) Urine Urobilinogen NEGATIVE EU EU (0.2-1.0) Ur Leukocyte Esterase NEGATIVE (NEGATIVE) Urine RBC 10-15 /hpf H /hpf (0-3) Urine WBC 1-3 /hpf /hpf (0-3) Ur Epithelial Cells TRACE /lpf /lpf (NONE-1+) Urine Mucus TRACE /lpf /lpf (NONE-1+) Urine Glucose NEGATIVE (NEGATIVE) Nasal Influenza A PCR Nasal Influenza B PCR [place] Departure - Departure Disposition: Home, Routine, Self-Care Clinical Impression: Weakness Condition: Good Instructions: Weakness (ED), Arthralgia (ED) Additional Instructions: Continue medications as prescribed. Return to the emergency department if you develop chest pain, shortness of breath, fever, or if you feel worse in any way. Call to schedule follow-up appointment with orthopedic surgeon on-call. Referrals: Myrna Smith MD [Primary Care Provider] - 1-2 days without fail Ailyn Barnard MD [Medical Doctor] - 2-3 days without fail (Orthopedic surgeon on- call)
[2017-11-07 17:17] VITALS: BP 109/68; PULSE 65; O2SAT 96
--- NOTE | 2017-11-07 18:38 | ASMTCMCOM ---
CM Note CM Note Notes: Received a call from Graciela Albarran ([phone]), floor care technician at [facility], notifying us that the patient was being sent by her PCP Dr Myrna Smith to the ED for weakness, dehydration. Patient provided NS fluids rehydration and tested negative for influenza. This CM tried to call Graciela back to let her know of patient's discharge plan, but Graciela had left for the day and is out of the office until 11/11/17. Patient discharged home, ED provider Claudia Das said she contacted on-call PCP at [facility], Dr Galeano, and he will relay to Dr Smith that patient had discharged home and to set up HC PT/OT as planned; also relayed need for patient to followup with ortho specialist for her shoulder. CM available for further assistance. Date Signed: 11/07/2017 06:38 PM Electronically Signed By:Elaine Mims RN
--- NOTE | 2017-11-07 18:42 | ASDISCHSUM ---
Discharge Information Plan Status:Home with No Needs Medically Cleared to Leave: Discharge Date:11/07/2017 05:27 PM CM D/C Disposition:Home, Routine, Self-Care ADT D/C Disposition:Home, Routine, Self-Care Projected Discharge Date:11/07/2017 05:27 PM Transportation at D/C:Self Discharge Delay Reason: Follow-Up Date:11/07/2017 05:27 PM Discharge Slot: Final Diagnosis: Placement Information Patient Contact Information Contact Name:MARIA VICTORIA Relationship: Address: Work Phone: City:[place] Alternate Phone: State/[employer] Code:[place] Email: Financial Information Financial Class: Primary Plan Desc:MEDICARE OUTPATIENT Primary Plan Number:[id number] Secondary Plan Desc:[employer] Secondary Plan Number:[id number] Assessment Information [facility] CM Progress Note CM Note CM Note Notes: Received a call from Graciela Albarran ([phone]), housekeeper caregiver at [facility], notifying us that the patient was being sent by her PCP Dr Myrna Smith to the ED for weakness, dehydration. Patient provided NS fluids rehydration and tested negative for influenza. This CM tried to call Graciela back to let her know of patient's discharge plan, but Graciela had left for the day and is out of the office until 11/11/17. Patient discharged home, ED provider Claudia Das said she contacted on-call PCP at [facility], Dr Galeano, and he will relay to Dr Smith that patient had discharged home and to set up HC PT/OT as planned; also relayed need for patient to followup with ortho specialist for her shoulder. CM available for further assistance. Date Signed: 11/07/2017 06:38 PM Electronically Signed By:Elaine Mims RN LACE LACE Acuity / Level of Care Answers: No. 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
== END 2017-11-07 17:27 | disposition home or self-care (01) ==
DX: R53.1 Weakness (principal); E11.9 Type 2 diabetes mellitus without complications

== ENCOUNTER → 2017-12-30 | Outpatient (CLI) | payer OTHER | LOC: FIMAGING 11:29 | PROVIDERS: ATTEND Family Medicine Sports Medicine | DX: M25.861 Other specified joint disorders, right knee (principal) ==

== ENCOUNTER → 2018-07-15 | Outpatient (CLI) | payer OTHER ==
[~2018-07-15] MED LIST: GADOBUTROL 10 ML VIAL IVP ONE
== END ==
LOC: FIMAGING 11:59
PROVIDERS: ATTEND Nurse Practitioner Family
DX: K76.9 Liver disease, unspecified (principal); K83.8 Other specified diseases of biliary tract; K44.9 Diaphragmatic hernia without obstruction or gangrene
CPT/HCPCS: 74183; A9585; 82180-90; 82607-90

== ENCOUNTER → 2018-10-01 | Outpatient (CLI) | payer OTHER | LOC: FIMAGING 10:25 | PROVIDERS: ATTEND Family Medicine Sports Medicine | DX: M81.0 Age-related osteoporosis without current pathological fracture (principal); Z78.0 Asymptomatic menopausal state; Z79.899 Other long term (current) drug therapy ==

== ENCOUNTER → 2018-12-10 | Outpatient (CLI) | payer OTHER | LOC: FIMAGING 09:19 | PROVIDERS: ATTEND Nurse Practitioner Family | DX: R13.10 Dysphagia, unspecified (principal); K44.9 Diaphragmatic hernia without obstruction or gangrene; K21.9 Gastro-esophageal reflux disease without esophagitis ==